=== PATIENT | male | born 1975 | race Caucasian/White ===

== ENCOUNTER 2016-08-04 21:39 | Emergency (ER) | payer MEDICAID ==
[2016-08-04 23:26] VITALS: BP 140/82
== END 2016-08-04 23:26 | disposition home or self-care (01) ==
LOC: ED 21:39
DX: T78.1XXA Other adverse food reactions, not elsewhere classified, initial encounter (principal); T78.3XXA Angioneurotic edema, initial encounter; X58.XXXA Exposure to other specified factors, initial encounter; Z79.899 Other long term (current) drug therapy
CPT/HCPCS: J1200; J2930; J7510

== ENCOUNTER 2017-02-05 08:48 | Emergency (ER) | payer MEDICAID ==
[~2017-02-05] VITALS: Ht 170.2 cm; Wt 83.5 kg
[2017-02-05 09:08] VITALS: Ht 170.2 cm; Wt 83.5 kg
[2017-02-05 10:18] VITALS: BP 114/75
== END 2017-02-05 10:18 | disposition home or self-care (01) ==
LOC: ED 08:48
DX: R05 Cough (principal); M79.1 Myalgia; R07.81 Pleurodynia

== ENCOUNTER 2018-08-22 18:17 | Inpatient (IN) | payer MEDICAID ==
[~2018-08-22] VITALS: Ht 170.2 cm; Wt 82.1 kg
[2018-08-22 18:26] VITALS: Ht 170.2 cm; Wt 82.1 kg
--- NOTE | 2018-08-22 19:12 | NUR ---
PER PT STS THAT HE HAS BEEN HAVING INTERMITTENT CHEST PAIN FOR THREE DAYS. PT STS THAT THE CHEST PAIN FELT LIKE A PRESSURE PAIN THAT RADIATED TO HIS LEFT ARM. PT STS THAT HE HAD SOME DIZZINESS AND DID NOT TAKE ANY MEDICATION. PT DENIES ANY NAUSEA OR VOMITING. PT STS THAT HE DID HAVE LLQ/RLQ PAIN WITH SOME DIARRHEA BUT NOW HE NO LONGER HAS THAT PAIN. PT STS THAT HE DID GET A BLOODY NOSE THIS MORNING. PT DENIES ANY WEAKNESS. PT PLACED ON FULL CM. VSS. RESP E/U. WILL CONTINUE TO MONITOR.
[2018-08-22 19:28] LABS: BASOPHIL % 0.5 % (0-2); PLATELET COUNT 235 x10^3mcL (130-400); RED CELL DISTRIBUTION WIDTH 13.6 % (11.5-14.5)
[2018-08-22 19:36] LABS: CALCIUM 8.8 mg/dL (8.5-10.1); CARBON DIOXIDE 28.9 mmol/L (21-32); CHLORIDE SERUM 104 mmol/L (98-107); CREATININE SERUM 1.2 mg/dL (0.7-1.3); GFR1 > 60 mL/min; GLUCOSE SERUM 95 mg/dL (74-106); POTASSIUM SERUM 3.3 mmol/L (3.5-5.1); SODIUM SERUM 142 mmol/L (136-145)
[2018-08-22 19:40] LABS: ALBUMIN 4.1 g/dL (3.4-5.0); ALKALINE PHOSPHATASE 75 U/L (46-116); ALT/SGPT 30 U/L (16-63); AST/SGOT 10 U/L (15-37); BILIRUBIN TOTAL 0.33 mg/dL (0.20-1.00); TOTAL PROTEIN, SERUM 7.4 g/dL (6.4-8.2)
--- NOTE | 2018-08-22 20:16 | NUR ---
REPORT GIVEN TO BAHMAN DUNN TO ASSUME CARE OF PT.
--- NOTE | 2018-08-22 20:43 | NUR ---
RECEIVED PT FROM ED, NO ACUTE DISTRESS. ORIENTED PT TO ROOM. BED IN LOWEST POSITION, SIDE RAILS UP X2, CALL LIGHT WITHIN REACH. WILL CONTINUE TO MONITOR.
[2018-08-22 20:50] LABS: microscopic required? NO
[2018-08-22 20:58] VITALS: BP 135/71
[2018-08-22 21:00] LABS: CHOLESTEROL/HDL RATIO 6.6; MAGNESIUM 2.3 mg/dL (1.8-2.4); PHOSPHOROUS 3.5 mg/dL (2.5-4.9)
[2018-08-22 21:01] LABS: urine erythrocyte NEGATIVE (NEGATIVE)
--- NOTE | 2018-08-22 21:04 | NUR ---
RECEIVED PT FROM ER VIA [facility] ACCOMPANIED WITH NURSE, EMT AND , ALERT AND ORIENTED, DENIES HEADACHE OR DIZZINESS, BREATHING EVEN AND UNLABORED, LUNG SOUNDS CLEAR, ON ROOM AIR WITH NO RESP DISTRES NOTED, SPO2:96% ON ROOM AIR, ON TELE#5 SB, DENIES CHEST PAIN, SL TO LAC, AMBULATORY WITH STEADY GAIT, ABD SOFT WITH ACTIVE BS, NO BM AT THIS TIME, DENIES ANY PROBLEM WITH VOIDING, AT BEDSIDE, PRIMARY NURSE SUE AT BEDSIDE, NO DISTRESS NOTED, WILL KEEP TO MONITOR.
[2018-08-22 21:07] LABS: FREE T4 0.99 ng/dL (0.76-1.46); FREE THYROXINE INDEX 2.3 ug/dL (1.4-4.5); T4(THYROXINE) 7.5 ug/dL (4.7-13.3)
[2018-08-22 21:10] LABS: T3 TOTAL 1.38 ng/mL
[2018-08-22 21:11] LABS: AMPHETAMINE QUAL UR NONE DETECTED (See below)
--- NOTE | 2018-08-23 00:26 | NUR ---
PT CURRENTLY RESTING IN BED, NO ACUTE DISTRESS. WILL CONTINUE TO MONITOR.
[2018-08-23 04:32] LABS: BASOPHIL % 0.8 % (0-2); PLATELET COUNT 213 x10^3mcL (130-400); RED CELL DISTRIBUTION WIDTH 13.4 % (11.5-14.5)
[2018-08-23 04:46] LABS: CALCIUM 7.9 mg/dL (8.5-10.1); CARBON DIOXIDE 28.7 mmol/L (21-32); CHLORIDE SERUM 107 mmol/L (98-107); GFR1 > 60 mL/min; GLUCOSE SERUM 102 mg/dL (74-106); POTASSIUM SERUM 3.9 mmol/L (3.5-5.1); SODIUM SERUM 143 mmol/L (136-145)
[2018-08-23 05:18] VITALS: BP 93/53
--- NOTE | 2018-08-23 05:55 | NUR ---
PT APPEARS WITH SWOLLEN UPPER LIP, STATES HE THINKS HE MAY HAVE AN ALLERGY TO ASPIRIN. NO ACUTE DISTRESS. DR RIOS AWARE. WILL CONTINUE TO MONITOR.
--- NOTE | 2018-08-23 06:09 | NUR ---
PT SLEPT PERIODICALLY THROUGHOUT NIGHT, NO ACUTE DISTRESS. ALL NEEDS MET AND ATTENDED. ALL SIGNIFICANT CHANGES DOCUMENTED. IV PATENT AND INTACT. BED IN LOWEST POSITION, SIDE RAILS UP X2, CALL LIGHT WITHIN REACH. WILL ENDORSE CARE TO ONCOMING NURSE.
--- NOTE | 2018-08-23 07:15 | NUR ---
RECEIVED PT FROM MELODY RN. PT AA/OX4. FOLLOWS COMPLEX COMMANDS, RESPONDS TO VERBAL STIMULI. SPEECH CLEAR. TOP LIP APPEARS SWOLLEN. PT REPORTS POSSIBLE ALLERGY TO ASPIRIN AND "BLOOD PRESSURE MEDICATION". PHYSICIANS AWARE. DENIES DIFFICULTY BREATHING, NO RASHES NOTED. DENIES CHEST PAIN AT THIS TIME. SINUS ROLANDA HR 46 ON TELE 5. NO SOB ON ROOM AIR. RR EVEN/UNLABORED. CHEST EXPANSION SYMMETRICAL. IV WNL TO LAC, NO REDNESS, NO SWELLING, NO INFILTRATION. REPORTS MILD PAIN TO LEFT SHOULDER/LEFT ARM. RATES PAIN 4/10. REPORTS TOLERABLE AT THIS TIME. DECLINED TO PAIN MEDICATION. ACTIVE FULL ROM NOTED. INSTRUCTED PT TO USE CALL LIGHT TO CALL FOR ASSISTANCE PRN. VERBALIZED UNDERSTANDING. WILL CONTINUE TO MONITOR.
[2018-08-23 09:28] VITALS: BP 102/57
--- NOTE | 2018-08-23 10:36 | NUR ---
PT LAYING IN BED. AA/OX4. NO S/S OF ACUTE DISTRESS. NO SOB ON ROOM AIR. NO CHEST PAIN. NO N/V. DENIES PAIN TO LEFT SHOULDER AT THIS TIME. NO DIZZINESS. IV WNL TO LAC, IV FLUIDS FLOWING. CALM/COOPERATIVE. BED IN LOW POSITION. CALL LIGHT WITHIN REACH. SIDE RAILS UP X2. WILL CONTINUE TO MONITOR.
[2018-08-23 12:21] VITALS: BP 107/66
[2018-08-23] MEDS ORDERED: LIPI10 PO (13:00)
[2018-08-23] MEDS ORDERED: BENADRYL ALLERG25 M1 PO (13:01)
[2018-08-23] MEDS ORDERED: IBUPROFEN400 MG PO (13:02)
[2018-08-23 13:30] VITALS: BP 107/66
--- NOTE | 2018-08-23 14:57 | NUR ---
PT BEING DISCHARGED TO HOME. AWAKE, ALERT, ORIENTED X4. NO S/S OF ACUTE DISTRESS. NO CHEST PAIN. NO SOB ON ROOM AIR. DENIES PAIN AT THIS TIME. CALM/COOPERATIVE. SINUSBRADY/SINUS RHYTHM ON TELE, TELE REMOVED. NO DIZZINESS. NO DEE. NO DIZZINESS. VISION WNL. DISCHARGE EDUCATION PROVIDED TO PATIENT, INSTRUCTED TO FOLLOW UP WITH PCP AND MAKE FOLLOW UP TO BE SEEN WITHIN ONE WEEK. PT VERBALIZED UNDERSTANDING. IV REMOVED FROM LAC, CATHETER IN TACT, PRESSURE APPLIED. SITE WNL. NO REDNESS, NO SWELLING, NO INFILTRATION. PRESCRIPTION WITH PATIENT, BELONGINGS WITH PATIENT. UPPER LIP EDEMA NOTED, PHYSICIANS AWARE. PT GIVEN PO BENADRYL. DENIES ITCHINESS/RASH/SOB/DIFFICULTY BREATHING. SEE CHART FOR PICTURE. TAKEN TO LOBBY BY ARTEMIO PINA. AMBULATORY WITH FULL ROM, GAIT STEADY. ACCOMPANIED BY .
== END 2018-08-23 15:04 | disposition home or self-care (01) | DRG 203 ==
LOC: ED 18:17 → DU 19:55
PROVIDERS: Emergency Medicine; ADMIT Internal Medicine
DX: M94.0 Chondrocostal junction syndrome [Tietze] (principal); E78.5 Hyperlipidemia, unspecified; R22.0 Localized swelling, mass and lump, head; T39.015A Adverse effect of aspirin, initial encounter; T46.4X5A Adverse effect of angiotensin-converting-enzyme inhibitors, initial encounter; Y92.230 Patient room in hospital as the place of occurrence of the external cause; Z68.28 Body mass index [BMI] 28.0-28.9, adult
CPT/HCPCS: 83880; 84439; G0378; Q0092; Q0163